=== PATIENT | female | born 1990 | race African-American/Black ===

== ENCOUNTER 2019-10-21 15:20 | Emergency (ER) | payer OTHER, SELFPAY ==
--- NOTE | ~2019-10-21 | US_ITS ---
EXAMINATION: US OB <=14 wk fetus w TV DATE: 10/21/2019 17:13 INDICATION: Bleeding during first trimester TECHNIQUE: Real-time pelvic transabdominal and transvaginal ultrasound was performed. COMPARISON: None. FINDINGS: The uterus measures 8.3 x 5.2 x 5.9 cm. No intrauterine gestational sac is identified. End ometrial thickness measures 10 mm. The right ovary measures 2.7 x 2.4 x 1.9 cm. The left ovary measur es 4.3 x 3.1 x 3.2 cm. There are two complex cysts of the left ovary which measure up to 2.8 cm. The re is a small amount of free fluid in the pelvis. IMPRESSION: 1. of unknown location. Although no intrauterine gestational sac is seen, this may be due t o early gestation or failure. If the patient is clinically stable, recommend followup with serial beta-hCG and ultrasound. Reviewed, dictated and finalized at location A. IMPRESSION: 1. of unknown location. Although no intrauterine gestational sac is s een, this may be due to early gestation or failure. If the patient is clinically stable, recommend followup with serial beta-hCG and ultrasound.
[2019-10-21 15:30] VITALS: BP 118/84; PULSE 88; RESP 16; TEMP 36.5; O2SAT 100
--- NOTE | 2019-10-21 15:47 | ED.ABDPAIN ---
HPI - Abdominal Pain General Chief Complaint: Vaginal Bleeding Stated Complaint: /cramping/spotting Time Seen by Provider: 10/21/19 15:30 History of Present Illness HPI narrative: This is a 29-year-old female who presents emergency department with complaint of and vaginal spotting with cramping. Patient reports she had a positive home test around October 04 with an LMP of 08/24/2019. She thought this was normal time of her. But only had faint spotting so took a test. Symptoms seem to resolve until today when she noticed more spotting with cramping. She is a G5, P2 with miscarriage in June 2019 and a prior stillborn at 25 weeks gestation. She has not had any OB care since her test and has an appointment scheduled in November. She denies fever, chills, lightheadedness or dizziness. Review of Systems Review of Systems: Narrative: CONSTITUTIONAL: Denies fever, chills, or sweats. EYES: Denies visual changes, redness, or discharge. ENT: Denies rhinorrhea, congestion, sore throat, or otalgia. CARDIOVASCULAR: Denies chest pain, palpitations, or edema. RESPIRATORY: Denies cough or dyspnea. GASTROINTESTINAL: Denies abdominal pain, nausea, vomiting, or diarrhea. GENITOURINARY: Denies dysuria or hematuria. Reports vaginal spotting and positive home test around October 04. SKIN: Denies rash or itching. MUSCULOSKELETAL: Denies back pain, joint pain, or myalgia. NEUROLOGIC: Denies headache, numbness, or weakness. Denies lightheadedness. PSYCHIATRIC: Denies anxiety or depression. [facility] Past Medical History Medical History (Updated 10/21/19 @ 18:36 by ASIA Hardy) History of stillbirth Miscarriage within last 12 months Patient denies allergies Social History Social History Gender identity (if verbalized by the patient): Female Exam Narrative: Exam Narrative: GENERAL: Well-appearing, well-nourished, and in no acute distress. HEAD: Normocephalic, atraumatic. EYES: Sclera anicteric ENT: Nares clear, no rhinorrhea or epistaxis. Mucous membranes moist. NECK: Supple. CHEST: Clear to auscultation. No respiratory distress. HEART: Regular rate and rhythm. No murmur heard. Normal peripheral pulses. ABDOMEN: Soft, nontender, nondistended, normal active bowel sounds. Abdomen is not gravid. : Pelvic exam: moderate amount white discharge, no odor, cervical os is closed, no blood noted in vaginal vault. No CMT, no adnexal tenderness or masses. Cultures obtained. EXTREMITIES: Normal range of motion. No edema. SKIN: Warm, dry, no rash. NEURO: No focal deficits. Alert and oriented x3. PSYCH: Normal mood and affect. Course Course Emergency Course: No further vaginal bleeding during ED stay. Discussed lab and US findings with patient. Pt is A/O x3, no abd pain, no dizziness or lightheadedness at this time. VSS. Afebrile. Vital Signs Vital signs: Vital Signs Temperature 36.5 C 10/21/19 15:30 Pulse Rate 88 10/21/19 15:30 Respiratory Rate 16 10/21/19 15:30 Blood Pressure 118/84 10/21/19 15:30 Pulse Oximetry 100 10/21/19 15:30 Temperature 36.7 C 10/21/19 18:35 Pulse Rate 60 10/21/19 18:35 Respiratory Rate 18 10/21/19 18:35 Blood Pressure 111/74 10/21/19 18:35 Pulse Oximetry 100 10/21/19 18:35 MDM - Abdominal Pain MDM Narrative Medical decision making narrative: Given pt hx of miscarriage and prior still there is concern for threatened miscarriage. Pt instructed to contact OB ([facility]) for repeat of BHCG in 48 hours as well as further evaluation. Rh status is + so pt will not need Rhogam at this time. Labs essentially WNL and GC/Chlamydia is pending. Pt does not have new partners and verbalizes no concern for STI. Will d/c home with follow up to OB. Differential Diagnosis Differential diagnosis: Likely other (ectopic , threatened miscarriage, miscarriage) Lab Data Result diagrams: 10/21/19 15:58 Labs: Lab Results 10/20
[2019-10-21 16:11] LABS: Basophils Percent Auto 0.5 % (0.2-1.2); Eosinophils Absolute Auto 0.2 K/mm3 (0-0.3); Eosinophils Percent Auto 4.5 % (0-4.4); Hematocrit 43.3 % (37.0-47.0); Hemoglobin 13.5 g/dL (12.0-15.0); Lymphocytes Absolute Auto 1.51 K/mm3 (0.9-3.2); Lymphocytes Percent Auto 37.4 % (18.3-44.2); Mean Corpuscular HGB Conc 31.2 g/dl (32-36); Mean Corpuscular Hemoglobin 26.9 pg (26-34); Mean Corpuscular Volume 86.3 fl (80-100); Mean Platelet Volume 11.3 fl (7.4-10.4); Monocytes Absolute Auto 0.4 K/mm3 (0.1-0.6); Monocytes Percent Auto 8.7 % (2.6-8.5); Neutrophils Percent Auto 48.9 % (45.5-73.1); Platelet Count Result 205 k/mm3 (150-375); Red Blood Count 5.02 M/mm3 (4.2-5.4); Red Cell Distribution Width 12.4 % (11.5-14.5)
[2019-10-21 16:13] LABS: Add Urine Microscopic? NO; Appearance Urine Clear (Clear); Bilirubin Urine Negative (Negative); Blood Urine Negative (Negative); Color Urine Straw (Yellow); Glucose Urine UA Negative (Negative); Ketones Urine Negative (Negative); Leukocyte Esterase Ur Negative LEU/UL (Negative); Nitrate Urine Negative (Negative); Protein Urine Negative (Negative); Specific Grav Ur 1.009 (1.001-1.035); Urobilinogen Urine Negative mg/dL (<2.0)
[2019-10-21 16:42] LABS: Beta HCG Quantitative 71.82 mIU/ML
[2019-10-21 17:22] VITALS: BP 120/66; PULSE 68
[2019-10-21 17:23] VITALS: BP 109/80; BP 121/69; PULSE 79; PULSE 96
[2019-10-21 17:54] VITALS: BP 109/76; PULSE 75; RESP 14; TEMP 36.6; O2SAT 100
[2019-10-21 18:35] VITALS: BP 111/74; PULSE 60; RESP 18; TEMP 36.7; O2SAT 100
== END 2019-10-21 18:45 | disposition home or self-care (01) ==
PROVIDERS: Nurse Practitioner
DX: O20.0 Threatened abortion (principal); Z3A.01 Less than 8 weeks gestation of pregnancy
CPT/HCPCS: 36415; 76801; 76817; 81003; 81025; 84702; 85025; 86900; 86901; 87070; 87491; 87591; 87808; 99284